=== PATIENT | female | born 1995 | race Caucasian/White ===

== ENCOUNTER 2018-10-29 21:22 | Emergency (ER) | payer MEDICARE, BC, OTHER ==
[2018-10-29 21:32] VITALS: BP 128/82; PULSE 99; RESP 20; TEMP 98.7
[2018-10-29] MEDS ORDERED: MAG HYDROX/AL HYDROX/SIMETH 30 ML, HYOSCYAMINE ELIXIR 10 ML, CIMETIDINE HCL 300 MG, LID... PO STA ×4 (22:28)
--- NOTE | 2018-10-29 22:32 | ED ---
Abdominal Pain HPI - General Chief Complaint: Abdominal Pain Stated Complaint: Abd pain Time Seen by Provider: 10/29/18 21:37 Source: patient Mode of arrival: ambulatory Limitations: no limitations - History of Present Illness Initial Comments: This patient is a 23-year-old woman who states that she has previously been told she has gastritis. She presents to be evaluated for epigastric discomfort that she is calling tightness. She states started to 3 hours ago after she had eaten some citrus-containing food. She states the discomfort is moderate intensity, constant, and she has not noted worsening or relieving factors. Patient states she also is having a little bit of nausea, but denies other symptoms. She declines antiemetic at my initial history and physical MD Complaint: abdominal pain Onset/Timin -: hour(s) Location: epigastric Radiation: none Severity: moderate Quality: other (Tightness) Consistency: constant Improves With: nothing Worsens With: nothing Associated Symptoms: nausea - Related Data Previous Rx's Medication Instructions Recorded Omeprazole 40 mg PO DAILY #14 capsule. 10/11/17 Famotidine [Pepcid] 20 mg PO BID #14 tablet 10/29/18 Allergies Allergy/AdvReac Type Severity Reaction Status Date / Time No Known Allergies Allergy Verified 10/29/18 21:32 Review of Systems ROS Statement: Those systems with pertinent positive or pertinent negative responses have been documented in the HPI. ROS Other: All systems not noted in ROS Statement are negative. Constitutional: Denies: fever, chills Respiratory: Denies: cough, dyspnea Cardiovascular: Denies: chest pain, palpitations, edema, syncope Gastrointestinal: Reports: abdominal pain, nausea. Denies: vomiting, diarrhea, constipation, melena, hematochezia Genitourinary: Denies: dysuria, hematuria Musculoskeletal: Denies: back pain Skin: Denies: rash Neurological: Denies: headache, weakness, numbness Past Medical History Past Medical History: Asthma Additional Past Medical History / Comment(s): Cognitive impairment since . Psoriasis. History of Any Multi-Drug Resistant Organisms: None Reported Past Surgical History: Adenoidectomy Additional Past Surgical History / Comment(s): oral surgery Past Anesthesia/Blood Transfusion Reactions: No Reported Reaction Past Psychological History: Anxiety Smoking Status: Never smoker Past Alcohol Use History: None Reported Past Drug Use History: None Reported - Past Family History Mother Family Medical History: Diabetes Mellitus General Exam Limitations: no limitations General appearance: alert, in no apparent distress Head exam: Present: atraumatic, normocephalic Eye exam: Present: normal appearance. Absent: scleral icterus, conjunctival injection ENT exam: Present: normal oropharynx Respiratory exam: Present: normal lung sounds bilaterally. Absent: respiratory distress, wheezes, rales, rhonchi, stridor Cardiovascular Exam: Present: regular rate, normal rhythm, normal heart sounds. Absent: systolic murmur, diastolic murmur, rubs, gallop GI/Abdominal exam: Present: soft, tenderness (Epigastric tenderness, mild without rebound or guarding.), normal bowel sounds. Absent: distended, guarding , rebound, rigid, mass, pulsatile mass, hernia Extremities exam: Present: normal inspection, normal capillary refill. Absent: pedal edema, calf tenderness Back exam: Present: normal inspection. Absent: CVA tenderness (R), CVA tenderness (L) Skin exam: Present: warm, dry, intact, normal color. Absent: rash Course Vital Signs 10/29/18 21:29 Temperature 98.7 F Pulse Rate 99 Respiratory 20 Rate Blood Pressure 128/82 O2 Sat by Pulse 98 Oximetry Medical Decision Making - Medical Decision Making On reevaluation, the patient states that the GI cocktail has improved her symptoms. Further history reveals that the patient has had ultrasound of the abdomen and they told her that her gallbladder looked okay. As she is feeling better and has had previous ultrasound, will give the patient further course of H2 raul and also discussed appropriate follow-up and further care as well as return parameters. Again there is no abdominal tenderness. - Lab Data Result diagrams: 10/29/18 22:50 10/29/18 22:50 Lab Results 10/29/18 10/29/18 10/29/18 Range/Units 22:50 22:50 22:50 WBC 11.4 H (3.8-10.6) k/uL RBC 5.23 (3.80-5.40) m/uL Hgb 14.5 (11.4-16.0) gm/dL Hct 44.1 (34.0-46.0) % MCV 84.3 (80.0-100.0) fL MCH 27.6 (25.0-35.0) pg MCHC 32.8 (31.0-37.0) g/dL RDW 12.9 (11.5-15.5) % Plt Count 416 (150-450) k/uL Neutrophils % 70 % Lymphocytes % 22 % Monocytes % 5 % Eosinophils % 1 % Basophils % 0 % Neutrophils # 8.0 H (1.3-7.7) k/uL Lymphocytes # 2.5 (1.0-4.8) k/uL Monocytes # 0.5 (0-1.0) k/uL Eosinophils # 0.1 (0-0.7) k/uL Basophils # 0.1 (0-0.2) k/uL Sodium 140 (137-145) mmol/L Potassium 3.6 (3.5-5.1) mmol/L Chloride 103 (98-107) mmol/L Carbon Dioxide 27 (22-30) mmol/L Anion Gap 10 mmol/L BUN 17 (7-17) mg/dL Creatinine 0.74 (0.52-1.04) mg/dL Est GFR (CKD-EPI)AfAm >90 (>60 ml/min/1.73 sqM) Est GFR (CKD-EPI)NonAf >90 (>60 ml/min/1.73 sqM) Glucose 100 H (74-99) mg/dL Calcium 11.4 H (8.4-10.2) mg/dL Total Bilirubin 0.3 (0.2-1.3) mg/dL AST 18 (14-36) U/L ALT 23 (9-52) U/L Alkaline Phosphatase 76 (38-126) U/L Total Protein 7.8 (6.3-8.2) g/dL Albumin 4.8 (3.5-5.0) g/dL Amylase 65 (30-110) U/L Lipase 142 (23-300) U/L Urine Color Light Yellow Urine Appearance Clear (Clear) Urine pH 6.0 (5.0-8.0) Ur Specific [place] 1.014 (1.001-1.035) Urine Protein Negative (Negative) Urine Glucose (UA) Negative (Negative) Urine Ketones Negative (Negative) Urine Blood Small H (Negative) Urine Nitrite Negative (Negative) Urine Bilirubin Negative (Negative) Urine Urobilinogen <2.0 (<2.0) mg/dL Ur Leukocyte Esterase Small H (Negative) Urine RBC <1 (0-5) /hpf Urine WBC 6 H (0-5) /hpf Ur Squamous Epith Cells 5 H (0-4) /hpf Urine Mucus Rare H (None) /hpf - EKG Data -: EKG Interpreted by Me EKG shows normal: sinus rhythm, axis (Normal), intervals (Normal), QRS complexes (Normal), ST-T waves (Normal) Rate: normal (With sinus arrhythmia, rate 88 bpm) Interpretation: normal EKG Disposition Clinical Impression: Abdominal pain Disposition: HOME SELF-CARE Condition: Good Instructions: Abdominal Pain (ED) Prescriptions: Famotidine [Pepcid] 20 mg PO BID #14 tablet Is patient prescribed a controlled substance at d/c from ED?: No Referrals: Ysabel Muñiz MD [Primary Care Provider] - 1-2 days
[2018-10-29 23:02] LABS: Basophils # (A) 0.1 k/uL (0-0.2); Basophils % (A) 0 %; Eosinophils # (A) 0.1 k/uL (0-0.7); Eosinophils % (A) 1 %; HCT 44.1 % (34.0-46.0); HGB 14.5 gm/dL (11.4-16.0); Lymphocytes # (A) 2.5 k/uL (1.0-4.8); Lymphocytes % (A) 22 %; MCH 27.6 pg (25.0-35.0); MCHC 32.8 g/dL (31.0-37.0); MCV 84.3 fL (80.0-100.0); Mean Platelet Volume 5.9; Monocytes # (A) 0.5 k/uL (0-1.0); Monocytes % (A) 5 %; Neutrophils % (A) 70 %; Platelet Count 416 k/uL (150-450); RBC 5.23 m/uL (3.80-5.40); RDW 12.9 % (11.5-15.5); WBC 11.4 k/uL (3.8-10.6)
[2018-10-29 23:03] LABS: Appearance,Urine Clear (Clear); Bilirubin,Urine Negative (Negative); Blood,Urine Small (Negative); Color,Urine Light Yellow; Glucose,Urine (UA) Negative (Negative); Ketones,Urine Negative (Negative); Leukocyte Esterase,Urine Small (Negative); Mucus,Urine Rare /hpf; Nitrite,Urine Negative (Negative); Protein,Urine Negative (Negative); RBC,Urine <1 /hpf (0-5); Specific Gravity,Urine 1.014 (1.001-1.035); Squamous Epithelial Cell,Urine 5 /hpf (0-4); Urobilinogen,Urine <2.0 mg/dL (<2.0); WBC,Urine 6 /hpf (0-5)
[2018-10-29 23:11] LABS: ALT 23 U/L (9-52); AST 18 U/L (14-36); Albumin 4.8 g/dL (3.5-5.0); Alkaline Phosphatase 76 U/L (38-126); Amylase 65 U/L (30-110); Anion Gap 10 mmol/L; Blood Urea Nitrogen 17 mg/dL (7-17); Calcium 11.4 mg/dL (8.4-10.2); Carbon Dioxide 27 mmol/L (22-30); Chloride 103 mmol/L (98-107); Glucose 100 mg/dL (74-99); Lipase 142 U/L (23-300); Potassium 3.6 mmol/L (3.5-5.1); Sodium 140 mmol/L (137-145); Total Bilirubin 0.3 mg/dL (0.2-1.3); Total Protein 7.8 g/dL (6.3-8.2)
== END 2018-10-29 23:55 | disposition home or self-care (01) ==
LOC: EC 21:22
DX: R10.9 Unspecified abdominal pain (principal); R11.0 Nausea
CPT/HCPCS: 36415; 80053; 81001; 82150; 83690; 85025; 93005; 99284

== ENCOUNTER 2019-10-22 20:42 | Emergency (ER) | payer MEDICARE, BC, OTHER ==
[2019-10-22] MEDS ORDERED: SODIUM CHLORIDE 0.9% 500 ML 500 ML IV STA (21:07)
[2019-10-22] MEDS ORDERED: PANTOPRAZOLE 40 MG/10 ML VIAL IVP STA (21:07)
[2019-10-22] MEDS ORDERED: MAG HYDROX/AL HYDROX/SIMETH 30 ML, HYOSCYAMINE ELIXIR 10 ML, LIDOCAINE VISCOUS 2% 10 ML PO STA ×3 (21:08)
--- NOTE | 2019-10-22 21:23 | ED ---
General Adult HPI - General Chief complaint: Abdominal Pain Stated complaint: Abd pain Time Seen by Provider: 10/22/19 20:59 Source: patient, RN notes reviewed, old records reviewed Mode of arrival: ambulatory Limitations: no limitations - History of Present Illness Initial comments: 24-year-old female patient past history except for asthma, mild cognitive impairment presents to ED for chief complaint of epigastric abdominal pain. Patient reports that for the last 2 days her epigastric region has been causing her pain. Describes as a burning and a dull pain. Reports nausea without emesis. States that she cannot be due to IUD. Denies any other complaints at this time. Systemic: Pt denies fatigue, fever/chills, rash. Pt denies weakness, night sweats, weight loss. Neuro: Pt denies headache, visual disturbances, syncope or pre-syncope. HEENT: Pt denies ocular discharge or irritation, otalgia, rhinorrhea, pharyngitis or notable lymphadenopathy. Cardiopulmonary: Pt denies chest pain, SOB, heart palpitations, dyspnea on exertion. : Pt denies dysuria, burning w/ urination, frequency/urgency. Denies new onset urinary or bowel incontinence. MSK: Pt denies myalgia, loss of strength or function in extremities. Neuro: Pt denies new onset weakness, paresthesias. - Related Data Previous Rx's Medication Instructions Recorded Omeprazole 40 mg PO DAILY #14 capsule. 10/11/17 Famotidine [Pepcid] 20 mg PO BID #14 tablet 10/29/18 Pantoprazole Sodium [Protonix] 20 mg PO Q24HR 7 Days #7 tablet. 10/22/19 Allergies Allergy/AdvReac Type Severity Reaction Status Date / Time No Known Allergies Allergy Verified 10/22/19 20:57 Review of Systems ROS Statement: Those systems with pertinent positive or pertinent negative responses have been documented in the HPI. ROS Other: All systems not noted in ROS Statement are negative. Past Medical History Past Medical History: Asthma Additional Past Medical History / Comment(s): Cognitive impairment since . Psoriasis. History of Any Multi-Drug Resistant Organisms: None Reported Past Surgical History: Adenoidectomy Additional Past Surgical History / Comment(s): oral surgery Past Anesthesia/Blood Transfusion Reactions: No Reported Reaction Past Psychological History: Anxiety Smoking Status: Never smoker Past Alcohol Use History: None Reported Past Drug Use History: None Reported - Past Family History Mother Family Medical History: Diabetes Mellitus General Exam - General Exam Comments Initial Comments: Constitutional: NAD, AOX3, Pt has pleasant affect. HEENT: NC/AT, trachea midline, neck supple, no lymphadenopathy. Posterior pharynx non erythematous, without exudates. External ears appear normal, without discharge. Mucous membranes moist. Eyes PERRLA, EOM intact. There is no scleral icterus. No pallor noted. Cardiopulmonary: RRR, no murmurs, rubs or gallops, no JVD noted. Lungs CTAB in anterior and posterior aquino. No peripheral edema. Abdominal exam: Abdomen soft and non-distended. Abdomen mildly tender to palpation in epigastric region. abdominal exam displayed significant improvement in tenderness. no other areas tender to palpation.Bowel sounds active in LLQ. No hepatosplenomegaly. No ecchymosis Neuro: CN II-XII grossly intact. No nuchal rigidity. No raccon eyes, no sawant sign, no hemotympanum. No cervical spinal tenderness. MSK: No posterior calf tenderness bilaterally, homans sign negative bilaterally. Posterior tibialis and radial pulse +2 bilaterally. Sensation intact in upper and lower extremities. Full active ROM in upper and lower extremities, 5/5 stregnth. Limitations: no limitations Course Vital Signs 10/22/19 10/22/19 20:54 21:42 Temperature 98.3 F Pulse Rate 88 82 Respiratory 18 17 Rate Blood Pressure 109/74 131/79 O2 Sat by Pulse 99 96 Oximetry Medical Decision Making - Medical Decision Making 24-year-old female patient past history except for asthma, mild cognitive impairment presents to ED for chief complaint of epigastric abdominal pain. Patient reports that for the last 2 days her epigastric region has been causing her pain. Describes as a burning and a dull pain. Reports nausea without emesis. States that she cannot be due to IUD. Denies any other complaints at this time. Patient will signs stable, afebrile. His exam displayed moderate amount of epigastric tenderness. Patient laboratory in vestigations revealed mild dehydration, slightly elevated BUN and creatinine. Patient was most 1.5 L bolus. Otherwise not impressive. Patient feeling much improved with GI cocktail, Protonix. Patient experiencing a gastritis-like syndrome. Will be discharged with Protonix will follow up with primary care provider tomorrow. We'll have kidney function test rechecked tomorrow. Return to ER physician worsens. Case discussed with Dr. Spence. - Lab Data Result diagrams: 10/22/19 21:21 10/22/19 21:21 Lab Results 10/22/19 10/22/19 10/22/19 Range/Units 21:20 21:20 21:21 WBC 9.6 (3.8-10.6) k/uL RBC 4.82 (3.80-5.40) m/uL Hgb 13.8 (11.4-16.0) gm/dL Hct 40.8 (34.0-46.0) % MCV 84.6 (80.0-100.0) fL MCH 28.6 (25.0-35.0) pg MCHC 33.8 (31.0-37.0) g/dL RDW 12.3 (11.5-15.5) % Plt Count 338 (150-450) k/uL Neutrophils % 62 % Lymphocytes % 29 % Monocytes % 6 % Eosinophils % 2 % Basophils % 0 % Neutrophils # 5.9 (1.3-7.7) k/uL Lymphocytes # 2.8 (1.0-4.8) k/uL Monocytes # 0.6 (0-1.0) k/uL Eosinophils # 0.1 (0-0.7) k/uL Basophils # 0.0 (0-0.2) k/uL Sodium (137-145) mmol/L Potassium (3.5-5.1) mmol/L Chloride (98-107) mmol/L Carbon Dioxide (22-30) mmol/L Anion Gap mmol/L BUN (7-17) mg/dL Creatinine (0.52-1.04) mg/dL Est GFR (CKD-EPI)AfAm (>60 ml/min/1.73 sqM) Est GFR (CKD-EPI)NonAf (>60 ml/min/1.73 sqM) Glucose (74-99) mg/dL Plasma Lactic Acid Alexandre (0.7-2.0) mmol/L Calcium (8.4-10.2) mg/dL Total Bilirubin (0.2-1.3) mg/dL AST (14-36) U/L ALT (4-34) U/L Alkaline Phosphatase (38-126) U/L Total Protein (6.3-8.2) g/dL Albumin (3.5-5.0) g/dL Lipase (23-300) U/L Urine Color Yellow Urine Appearance Clear (Clear) Urine pH 6.0 (5.0-8.0) Ur Specific [place] 1.022 (1.001-1.035) Urine Protein Negative (Negative) Urine Glucose (UA) Negative (Negative) Urine Ketones Negative (Negative) Urine Blood Negative (Negative) Urine Nitrite Negative (Negative) Urine Bilirubin Negative (Negative) Urine Urobilinogen <2.0 (<2.0) mg/dL Ur Leukocyte Esterase Small H (Negative) Urine RBC 1 (0-5) /hpf Urine WBC 3 (0-5) /hpf Ur Squamous Epith Cells 2 (0-4) /hpf Urine Mucus Rare H (None) /hpf Urine HCG, Qual Not Detected (Not Detectd) 10/22/19 10/22/19 Range/Units 21:21 21:21 WBC (3.8-10.6) k/uL RBC (3.80-5.40) m/uL Hgb (11.4-16.0) gm/dL Hct (34.0-46.0) % MCV (80.0-100.0) fL MCH (25.0-35.0) pg MCHC (31.0-37.0) g/dL RDW (11.5-15.5) % Plt Count (150-450) k/uL Neutrophils % % Lymphocytes % % Monocytes % % Eosinophils % % Basophils % % Neutrophils # (1.3-7.7) k/uL Lymphocytes # (1.0-4.8) k/uL Monocytes # (0-1.0) k/uL Eosinophils # (0-0.7) k/uL Basophils # (0-0.2) k/uL Sodium 138 (137-145) mmol/L Potassium 4.3 (3.5-5.1) mmol/L Chloride 105 (98-107) mmol/L Carbon Dioxide 25 (22-30) mmol/L Anion Gap 8 mmol/L BUN 19 H (7-17) mg/dL Creatinine 1.16 H (0.52-1.04) mg/dL Est GFR (CKD-EPI)AfAm 76 (>60 ml/min/1.73 sqM) Est GFR (CKD-EPI)NonAf 66 (>60 ml/min/1.73 sqM) Glucose 87 (74-99) mg/dL Plasma Lactic Acid Alexandre 0.7 (0.7-2.0) mmol/L Calcium 9.2 (8.4-10.2) mg/dL Total Bilirubin 0.5 (0.2-1.3) mg/dL AST 18 (14-36) U/L ALT 13 (4-34) U/L Alkaline Phosphatase 60 (38-126) U/L Total Protein 7.5 (6.3-8.2) g/dL Albumin 4.5 (3.5-5.0) g/dL Lipase 214 (23-300) U/L Urine Color Urine Appearance (Clear) Urine pH (5.0-8.0) Ur Specific [place] (1.001-1.035) Urine Protein (Negative) Urine Glucose (UA) (Negative) Urine Ketones (Negative) Urine Blood (Negative) Urine Nitrite (Negative) Urine Bilirubin (Negative) Urine Urobilinogen (<2.0) mg/dL Ur Leukocyte Esterase (Negative) Urine RBC (0-5) /hpf Urine WBC (0-5) /hpf Ur Squamous Epith Cells (0-4) /hpf Urine Mucus (None) /hpf Urine HCG, Qual (Not Detectd) Disposition Clinical Impression: Abdominal pain, Gastritis Disposition: HOME SELF-CARE Condition: Stable Instructions (If sedation given, give patient instructions): Abdominal Pain (ED), Gastritis (ED) Additional Instructions: take medications directed. Follow-up with primary care provider tomorrow. have kidney function tests rechecked. Return to ER if condition worsens in any way. Prescriptions: Pantoprazole Sodium [Protonix] 20 mg PO Q24HR 7 Days #7 tablet.dr Is patient prescribed a controlled substance at d/c from ED?: No Referrals: Ysabel Muñiz MD [Primary Care Provider] - 1-2 days
[2019-10-22 21:37] LABS: Basophils % (A) 0 %; Eosinophils # (A) 0.1 k/uL (0-0.7); Eosinophils % (A) 2 %; HCT 40.8 % (34.0-46.0); HGB 13.8 gm/dL (11.4-16.0); Lymphocytes # (A) 2.8 k/uL (1.0-4.8); Lymphocytes % (A) 29 %; MCH 28.6 pg (25.0-35.0); MCHC 33.8 g/dL (31.0-37.0); MCV 84.6 fL (80.0-100.0); Mean Platelet Volume 6.5; Monocytes # (A) 0.6 k/uL (0-1.0); Monocytes % (A) 6 %; Neutrophils # (A) 5.9 k/uL (1.3-7.7); Neutrophils % (A) 62 %; Platelet Count 338 k/uL (150-450); RBC 4.82 m/uL (3.80-5.40); RDW 12.3 % (11.5-15.5); WBC 9.6 k/uL (3.8-10.6)
[2019-10-22 21:39] LABS: Appearance,Urine Clear (Clear); Bilirubin,Urine Negative (Negative); Blood,Urine Negative (Negative); Color,Urine Yellow; Glucose,Urine (UA) Negative (Negative); Ketones,Urine Negative (Negative); Leukocyte Esterase,Urine Small (Negative); Mucus,Urine Rare /hpf; Nitrite,Urine Negative (Negative); Protein,Urine Negative (Negative); RBC,Urine 1 /hpf (0-5); Specific Gravity,Urine 1.022 (1.001-1.035); Squamous Epithelial Cell,Urine 2 /hpf (0-4); Urobilinogen,Urine <2.0 mg/dL (<2.0); WBC,Urine 3 /hpf (0-5)
[2019-10-22 21:46] LABS: Albumin 4.5 g/dL (3.5-5.0); Calcium 9.2 mg/dL (8.4-10.2); Potassium 4.3 mmol/L (3.5-5.1); Total Bilirubin 0.5 mg/dL (0.2-1.3); Total Protein 7.5 g/dL (6.3-8.2)
[2019-10-22] MEDS ORDERED: SODIUM CHLORIDE 0.9% 1,000 ML IV STA (21:52)
[2019-10-22 22:37] VITALS: RESP 16; TEMP 98
[2019-10-22 23:31] VITALS: BP 129/95; PULSE 71
== END 2019-10-22 23:31 | disposition home or self-care (01) ==
LOC: EC 20:42
DX: K29.70 Gastritis, unspecified, without bleeding (principal); E86.0 Dehydration; R79.89 Other specified abnormal findings of blood chemistry; G31.84 Mild cognitive impairment of uncertain or unknown etiology; Z97.5 Presence of (intrauterine) contraceptive device
CPT/HCPCS: 36415; 80053; 83605; 83690; 85025; 81001; 81025; 99284; 96374; 96361 ×2; C9113

== ENCOUNTER 2021-05-07 21:48 | Emergency (ER) | payer BC, MEDICARE ==
[2021-05-07 22:20] VITALS: BP 139/80; PULSE 117; RESP 20; TEMP 98.1
[2021-05-07] MEDS ORDERED: diphenhydrAMINE 50 MG CAP PO STA (23:37)
--- NOTE | 2021-05-07 23:37 | ED ---
SOB HPI - General Chief Complaint: Shortness of Breath Stated Complaint: SOB,breathed in mildew Time Seen by Provider: 05/07/21 22:37 Source: patient Mode of arrival: ambulatory Limitations: no limitations - History of Present Illness Initial Comments: This patient is 26-year-old woman who presents with complaint that she was having some shortness of breath and felt some tightness in her throat after she had been cleaning and small some mildew. The patient was not sure if this was related to the mildew or to the exposure to cleaning, chemicals. The patient states that she has had improvement while waiting here. MD Complaint: shortness of breath Onset/Timin -: hour(s) Severity scale (1-10): 0 Consistency: now resolved Improves With: nothing Worsens With: other Associated Symptoms: denies other symptoms - Related Data Previous Rx's Medication Instructions Recorded Omeprazole 40 mg PO DAILY #14 capsule. 10/11/17 Famotidine [Pepcid] 20 mg PO BID #14 tablet 10/29/18 Pantoprazole Sodium [Protonix] 20 mg PO Q24HR 7 Days #7 tablet. 10/22/19 Albuterol Inhaler [Ventolin Hfa 2 puff INHALATION Q4HR PRN #1 05/07/21 Inhaler] inhaler Allergies Allergy/AdvReac Type Severity Reaction Status Date / Time No Known Allergies Allergy Verified 05/07/21 22:17 Review of Systems ROS Statement: Those systems with pertinent positive or pertinent negative responses have been documented in the HPI. ROS Other: All systems not noted in ROS Statement are negative. Constitutional: Denies: fever, chills Respiratory: Reports: dyspnea, wheezes. Denies: cough Cardiovascular: Denies: chest pain, palpitations, orthopnea, edema, syncope Gastrointestinal: Denies: abdominal pain, vomiting, diarrhea Genitourinary: Denies: dysuria, hematuria Musculoskeletal: Denies: back pain Skin: Denies: rash Neurological: Denies: headache, weakness Past Medical History Past Medical History: Asthma Additional Past Medical History / Comment(s): Cognitive impairment since . Psoriasis. History of Any Multi-Drug Resistant Organisms: None Reported Past Surgical History: Adenoidectomy Additional Past Surgical History / Comment(s): oral surgery Past Anesthesia/Blood Transfusion Reactions: No Reported Reaction Past Psychological History: Anxiety Smoking Status: Never smoker Past Alcohol Use History: None Reported Past Drug Use History: None Reported - Past Family History Mother Family Medical History: Diabetes Mellitus General Exam Limitations: no limitations General appearance: alert, in no apparent distress Head exam: Present: atraumatic, normocephalic Eye exam: Present: normal appearance. Absent: scleral icterus, conjunctival injection ENT exam: Present: normal oropharynx Neck exam: Present: normal inspection Respiratory exam: Absent: respiratory distress, wheezes, rales, rhonchi, stridor, accessory muscle use Cardiovascular Exam: Present: regular rate (Rate is 92 of my exam), normal rhythm, normal heart sounds. Absent: systolic murmur, diastolic murmur, rubs, gallop GI/Abdominal exam: Present: soft. Absent: distended, tenderness, guarding, rebound, rigid, mass Extremities exam: Present: normal inspection, normal capillary refill. Absent: pedal edema, calf tenderness Neurological exam: Present: alert Skin exam: Present: warm, dry, intact, normal color. Absent: rash Course Vital Signs 05/07/21 22:18 Temperature 98.1 F Pulse Rate 117 H Respiratory 20 Rate Blood Pressure 139/80 O2 Sat by Pulse 97 Oximetry Medical Decision Making - Medical Decision Making Discussed with patient that I suspect she had an episode of bronchospasm. There is currently no symptoms or any exam findings. Discussed further care and follow-up. Discussed return parameters. Disposition Clinical Impression: Bronchospasm, acute Disposition: HOME SELF-CARE Condition: Good Instructions (If sedation given, give patient instructions): Bronchospasm (ED) Prescriptions: Albuterol Inhaler [Ventolin Hfa Inhaler] 2 puff INHALATION Q4HR PRN #1 inhaler PRN Reason: Wheezing Is patient prescribed a controlled substance at d/c from ED?: No Referrals: None,Stated [Primary Care Provider] - 1-2 days
== END 2021-05-07 23:47 | disposition home or self-care (01) ==
LOC: EC 21:48
DX: J98.01 Acute bronchospasm (principal); F41.9 Anxiety disorder, unspecified; Z79.51 Long term (current) use of inhaled steroids
CPT/HCPCS: 99284

== ENCOUNTER 2021-09-18 21:40 | Emergency (ER) | payer MEDICARE, OTHER ==
--- NOTE | 2021-09-18 23:45 | ED ---
General Adult HPI - General Chief complaint: Upper Respiratory Infection Stated complaint: COVID + VERONICA Time Seen by Provider: 09/18/21 23:33 Source: patient, RN notes reviewed Mode of arrival: ambulatory Limitations: no limitations - History of Present Illness Initial comments: 26-year-old well-appearing female presents to the emergency room with complaints of 7 days of cough and congestion. She states that she has had worsening shortness of breath over the past couple of days. She did see her primary care doctor 2 days ago and he prescribed her azithromycin and a Medrol Dosepak. He told her that it was a common cold. Patient states that her son tested positive for Covid 2 days ago and she is concerned that she may have Covid. She has had a history of asthma. -: days(s) (7) Location: mouth (Wrote), neck Severity scale (1-10): 0 Consistency: intermittent Improves with: other (Sitting up) Worsens with: other (Laying flat) Associated Symptoms: confusion, cough Treatments Prior to Arrival: other (Medrol Dosepak, azithromycin.) - Related Data Previous Rx's Medication Instructions Recorded Omeprazole 40 mg PO DAILY #14 capsule. 10/11/17 Famotidine [Pepcid] 20 mg PO BID #14 tablet 10/29/18 Pantoprazole Sodium [Protonix] 20 mg PO Q24HR 7 Days #7 tablet. 10/22/19 Albuterol Inhaler [Ventolin Hfa 2 puff INHALATION Q4HR PRN #1 05/07/21 Inhaler] inhaler Albuterol Nebulized [Ventolin 2.5 mg INHALATION QID PRN #125 nebu 05/08/21 Nebulized] Albuterol Sulfate [Albuterol 2 puff INHALATION Q6H PRN #1 05/08/21 Sulfate Hfa] inhaler Allergies Allergy/AdvReac Type Severity Reaction Status Date / Time No Known Allergies Allergy Verified 09/18/21 22:59 Review of Systems ROS Statement: Those systems with pertinent positive or pertinent negative responses have been documented in the HPI. ROS Other: All systems not noted in ROS Statement are negative. Past Medical History Past Medical History: Asthma Additional Past Medical History / Comment(s): Cognitive impairment since . Psoriasis. History of Any Multi-Drug Resistant Organisms: None Reported Past Surgical History: Adenoidectomy Additional Past Surgical History / Comment(s): oral surgery Past Anesthesia/Blood Transfusion Reactions: No Reported Reaction Past Psychological History: Anxiety Smoking Status: Never smoker Past Alcohol Use History: None Reported Past Drug Use History: None Reported - Past Family History Mother Family Medical History: Diabetes Mellitus General Exam Limitations: no limitations General appearance: alert, in no apparent distress Head exam: Present: atraumatic, normocephalic, normal inspection Eye exam: Present: normal appearance, EOMI. Absent: scleral icterus, conjunctival injection, periorbital swelling ENT exam: Present: normal exam, normal oropharynx, mucous membranes moist Neck exam: Present: normal inspection. Absent: tenderness, meningismus, full ROM, lymphadenopathy, thyromegaly Respiratory exam: Present: normal lung sounds bilaterally. Absent: respiratory distress, wheezes, rales, rhonchi, stridor, chest wall tenderness, accessory muscle use Cardiovascular Exam: Present: tachycardia Back exam: Present: normal inspection. Absent: full ROM, tenderness, CVA tenderness (R), CVA tenderness (L), rash noted Neurological exam: Present: alert, oriented X3, normal gait Psychiatric exam: Present: normal affect, normal mood Skin exam: Present: warm, dry, intact, normal color. Absent: rash, cyanosis, diaphoretic Course Vital Signs 09/18/21 09/19/21 09/19/21 22:59 00:00 00:55 Temperature 98 F 98.7 F Pulse Rate 114 H 99 Respiratory 18 20 18 Rate Blood Pressure 136/81 130/84 O2 Sat by Pulse 96 95 Oximetry Medical Decision Making - Medical Decision Making Patient's Covid test is negative today. Patient was offered monoclonal antibodies and declined. She was given a fact sheet to review regarding monoclonal antibodies. I did direct her to return to the emergency room if symptoms worsen. She states she is going to continue taking her Medrol dose pack and antibiotics as previously prescribed. Lungs sounds are clear to auscultation. Her vital signs are stable. She will follow up with her primary care doctor. She states she will return to the emergency room with any new or worsening symptoms. Case was discussed with Dr. Guzman. - Lab Data Lab Results 09/18/21 Range/Units 23:03 Coronavirus (PCR) Not Detected (Not Detectd) Disposition Clinical Impression: Acute upper respiratory infection Disposition: HOME SELF-CARE Condition: Good Instructions (If sedation given, give patient instructions): Upper Respiratory Infection (ED) Additional Instructions: Continue taking the medication as prescribed by your primary care doctor. You can try Benadryl [id number] to help with nasal drainage. Follow up with your doctor next week. You can return to the emergency room for monoclonal antibodies. Return to emergency room with any new or worsening symptoms. Is patient prescribed a controlled substance at d/c from ED?: No Referrals: Syed Mg MD [Primary Care Provider] - 1-2 days Time of Disposition: 00:34
[2021-09-19 00:56] VITALS: BP 130/84; PULSE 99; RESP 18; TEMP 98.7
== END 2021-09-19 00:56 | disposition home or self-care (01) ==
LOC: EC 21:40
DX: J06.9 Acute upper respiratory infection, unspecified (principal); Z20.822 Contact with and (suspected) exposure to COVID-19; J45.909 Unspecified asthma, uncomplicated; Z79.51 Long term (current) use of inhaled steroids; Z79.899 Other long term (current) drug therapy
CPT/HCPCS: 87635; 99283

== ENCOUNTER → 2022-05-12 | Outpatient (CLI) | payer MEDICARE ==
--- NOTE | 2022-05-12 08:59 | US ---
EXAMINATION TYPE: US pelvic complete DATE OF EXAM: 05/12/2022 COMPARISON: US 01/2013 CLINICAL HISTORY: 27-year-old female Z97.5 INTRAUTERINE DEVICE N92.1 EXCESSIVE menstruation. SPOTTING WITH IUD TECHNIQUE: Transvaginal (TV). Transabdominal sonographic images of the pelvis were acquired. Date of LMP: 04/19/2022 EXAM MEASUREMENTS: Uterus: 9.2 x 3.3 x 4.4cm Endometrial Stripe: 0.5cm Right Ovary: 3.4 x 2.2 x 3.5cm Left Ovary: 3.3 x 2.4 x 2.3cm 1. Uterus: Anteverted. No abnormalities seen 2. Endometrium: wnl, IUD appears appropriately situated along the uterine cavity. 3. Right Ovary: wnl, follicles noted largest measuring 1.2 x 1.1 x 1.2cm 4. Left Ovary: Normal follicular change. 5. Bilateral Adnexa: wnl 6. Posterior cul-de-sac: wnl IMPRESSION: 1. IUD appropriately situated along the uterine cavity. 2. Normal follicular change in both ovaries
== END | disposition home or self-care (01) ==
LOC: RADUSWWP 07:47
PROVIDERS: ATTEND Obstetrics & Gynecology
DX: N92.1 Excessive and frequent menstruation with irregular cycle (principal); Z97.5 Presence of (intrauterine) contraceptive device
CPT/HCPCS: 76856

== ENCOUNTER → 2023-09-09 | Outpatient (CLI) | payer MEDICARE ==
--- NOTE | 2023-09-09 10:39 | US ---
EXAMINATION TYPE: US pelvic complete DATE OF EXAM: 09/09/2023 COMPARISON: US 2021 CLINICAL INDICATION: Female, 28 years old with history of N93.9 ABNORMAL UTERINE AND VAGINAL BLEEDING ,; Irregular heavy painful periods x 10+ years TECHNIQUE: . Transabdominal sonographic images of the pelvis were acquired. Date of LMP: 08/19/2023 EXAM MEASUREMENTS: Uterus: 9.2 x 3.3 x 4.0 cm Endometrial Stripe: 0.7 cm Right Ovary: 3.1 x 2.0 x 3.0 cm Left Ovary: 3.0 x 1.7 x 2.0 cm 1. Uterus: anteverted 2. Endometrium: IUD seen in place 3. Right Ovary: wnl 4. Left Ovary: wnl 5. Bilateral Adnexa: wnl 6. Posterior cul-de-sac: wnl Unremarkable anteverted uterus. Endometrium is within normal thickness. IUD is demonstrated within th e endometrium. Both ovaries appear unremarkable. No free fluid. IMPRESSION: 1. No acute pelvic process. 2. Endometrium is within normal thickness with IUD in place.
== END | disposition home or self-care (01) ==
LOC: RADUSWWP 09:10
PROVIDERS: ATTEND Family Medicine
DX: N93.9 Abnormal uterine and vaginal bleeding, unspecified (principal); N94.6 Dysmenorrhea, unspecified; Z97.5 Presence of (intrauterine) contraceptive device
CPT/HCPCS: 76856

== ENCOUNTER → 2024-03-06 | Outpatient (CLI) | payer MEDICARE, OTHER ==
--- NOTE | 2024-03-17 13:59 | HM ---
HOLTER MONITOR REPORT STUDY PERFORMED: A 24-hour monitor. FINDINGS: The patient was monitored for 24 hours. The baseline rhythm appeared to be sinus mechanism with a minimum heart rate of 62 beats per minute and average heart rate of 95 and maximum heart rate of 158 beats per minute. Ventricular and supraventricular ectopic events were rare. No evidence of sinus pause or sinus arrest. CONCLUSION: This is a 24-hour Holter monitor. The baseline rhythm appeared to be sinus mechanism. Rare PACs and PVCs. No evidence of sinus pause or sinus arrest noted. MMODL / IJN: [id number] /
== END | disposition home or self-care (01) ==
LOC: RADECHMAIN 07:55
PROVIDERS: ATTEND Family Medicine
DX: R00.2 Palpitations (principal)
CPT/HCPCS: 93225; 93226

== ENCOUNTER → 2024-09-25 | Outpatient (CLI) | payer MEDICARE, OTHER ==
--- NOTE | 2024-09-25 16:34 | US ---
EXAMINATION TYPE: US pelvic complete DATE OF EXAM: 09/25/2024 COMPARISON: Pelvic ultrasound 09/09/23, 05/12/2022 CLINICAL INDICATION: Female, 29 years old with history of N91.2 AMENORRHEA; irregular periods. . IUD since 2017 TECHNIQUE: Transabdominal (TA). FINDINGS: Date of LMP: unknown EXAM MEASUREMENTS: Uterus: 9.6 x 3.9 x 3.1 cm Endometrial Stripe: 0.42 cm Right Ovary: 3.6 x 2.4 x 1.8 cm Left Ovary: 3.0 x 2.4 x 1.6 cm 1. Uterus: Anteverted wnl 2. Endometrium: wnl 3. Right Ovary: wnl 4. Left Ovary: wnl 5. Bilateral Adnexa: wnl 6. Posterior cul-de-sac: wnl Unremarkable anteverted uterus with IUD in place. Endometrium is within normal limits. Both ovaries a ppear within normal limits. No free fluid. IMPRESSION: 1. No acute pelvic process. 2. Endometrium is within normal thickness with IUD in place. [facility], , 09/25/2024 4:32 PM
== END | disposition home or self-care (01) ==
LOC: RADUSWWP 15:34
PROVIDERS: ATTEND Family Medicine
DX: N91.2 Amenorrhea, unspecified (principal); N92.6 Irregular menstruation, unspecified; Z97.5 Presence of (intrauterine) contraceptive device
CPT/HCPCS: 76856

== ENCOUNTER → 2024-12-12 | Outpatient (CLI) | payer MEDICARE, OTHER ==
[2024-12-12 14:47] VITALS: BP 151/91; PULSE 81; RESP 18; TEMP 97.3
--- NOTE | 2024-12-12 16:10 | P.SLEEP ---
History of Present Illness H&P Date: 12/12/24 Is a 29-year-old female patient was referred to me for treatment of a obstructive sleep apnea that was diagnosed earlier. The patient had history of loud snoring, sleep fragmentation, and excessive hypersomnia and sleepiness. She also has dry mouth whenever she wakes up in the morning. She has grinding of the teeth. She feels exhausted and tired at all times. She has an irregular sleep schedule where the patient goes to bed at various times and she is unable to keep or maintain a regular schedule. On average, she is sleeping 6 hours on a 24-hour. And sometimes up to 7 hours. She is morbidly obese and she has gained weight significantly over the past 10 years and she probably has gained around 120 pounds. No excessive utilization of alcoholic beverages. No excessive utilization of caffeinated beverages. She sleeps on her side. She wakes up few times in the middle of the night and she is able to generate sleep without any major difficulties. Based on all this, a home sleep study was done on this patient and outpatient maintenance study was completed on 11/09/2025. Review of the home sleep study showed that the patient had severe obstructive sleep apnea. The patient was established to have an AHI of 36. The same time, the patient encountered severe nocturnal in the titration with a minimum pulse ox of 67%. Based on that, the patient was referred to me for further advice. Her other comorbid conditions include chronic bronchial asthma. No history of any motor vehicle accidents because of feeling drowsy or sleepy although the patient reports that she has fallen asleep behind the wheel for brief seconds. Her current [place] score is at 11. No sleep paralysis. No hallucinations. No cataplexy. Review of Systems Constitutional: Reports daytime sleepiness, Reports fatigue, Reports weight gain Eyes: denies as per HPI, denies blurred vision, denies bulging eye, denies decreased vision, denies diplopia, denies discharge, denies dry eye, denies irritation, denies itching, denies pain, denies photophobia, denies loss of peripheral vision, denies loss of vision, denies tunnel vision/blind spots Ears: deny: decreased hearing, ear discharge, earache, tinnitus Ears, nose, mouth and throat: Reports as per HPI Breasts: absent: as per HPI, change in shape, gynecomastia, masses, nipple discharge, pain, skin changes, swelling Cardiovascular: Reports as per HPI Respiratory: Reports sleep apnea, Reports snoring Gastrointestinal: Reports as per HPI Genitourinary: Reports as per HPI Menstruation: Reports as per HPI Musculoskeletal: Reports as per HPI Musculoskeletal: absent: ankle pain, ankle stiffness, ankle swelling, as per HPI, elbow pain, elbow stiffness, elbow swelling, foot pain, foot stiffness, foot swelling, hand pain, hand stiffness, hand swelling, hip pain, hip stiffness, hip swelling, knee pain, knee stiffness, knee swelling, shoulder pain, shoulder stiffness, shoulder swelling, wrist pain, wrist stiffness, wrist swelling Integumentary: Reports as per HPI Neurological: Reports as per HPI Psychiatric: Reports hypersomnia, Reports sleep disturbances Endocrine: Reports fatigue Hematologic/Lymphatic: Reports as per HPI Allergic/Immunologic: Reports as per HPI Past Medical History Past Medical History: Asthma, Sleep Apnea/CPAP/BIPAP Additional Past Medical History / Comment(s): Cognitive impairment since . Psoriasis. History of Any Multi-Drug Resistant Organisms: None Reported Past Surgical History: Adenoidectomy Additional Past Surgical History / Comment(s): oral surgery Past Anesthesia/Blood Transfusion Reactions: No Reported Reaction Past Psychological History: Anxiety, Panic Disorder, PTSD Additional Psychological History / Comment(s): pt states hx of anxiety at 11 yrs old. on meds at that time. pt is cognitively slow. slow to respond and is unsure of many questions asked during assessment. unsure of dates and procedures. Smoking Status: Never smoker Past Alcohol Use History: None Reported Past Drug Use History: None Reported - Past Family History Mother Family Medical History: Diabetes Mellitus Additional Family Medical History / Comment(s): (grandpa - heart problems, sleep apnea, snoring, cancer) (grandma = fibromyalgia, arthritis, cancer) Medications and Allergies Home Medications Medication Instructions Recorded Confirmed Type Omeprazole 40 mg PO DAILY #14 capsule. 10/11/17 Rx Famotidine [Pepcid] 20 mg PO BID #14 tablet 10/29/18 Rx Pantoprazole Sodium [Protonix] 20 mg PO Q24HR 7 Days #7 tablet. 10/22/19 Rx Albuterol Inhaler [Ventolin Hfa 2 puff INHALATION Q4HR PRN #1 05/07/21 Rx Inhaler] inhaler Albuterol Nebulized [Ventolin 2.5 mg INHALATION QID PRN #125 nebu 05/08/21 Rx Nebulized] Albuterol Sulfate [Albuterol 2 puff INHALATION Q6H PRN #1 05/08/21 Rx Sulfate Hfa] inhaler Allergies Allergy/AdvReac Type Severity Reaction Status Date / Time No Known Allergies Allergy Verified 09/18/21 22:59 Physical Exam Vitals: Vital Signs Temp Pulse Resp BP Pulse Ox 12/12/24 14:43 97.3 F L 81 18 151/91 98 Intake and Output 12/12/24 12/12/24 12/12/24 06:59 14:59 22:59 Other: Weight 135.284 kg The patient appeared well nourished and normally developed. Vital signs as documented. The patient is morbidly obese with a body mass index of 59.8 Head exam is unremarkable. No scleral icterus or corneal arcus noted. Neck is without jugular venous distension, thyromegaly, or carotid bruits. Carotid upstrokes are brisk bilaterally. Mallampati class IV with crowding the posterior pharynx Lungs are clear to auscultation and percussion. Cardiac exam reveals the PMI to be normally sized and situated. Rhythm is regular. First and second heart sounds normal. No murmurs, rubs or gallops. Abdominal exam reveals normal bowel sounds, no masses, no organomegaly and no aortic enlargement. Extremities are nonedematous and both femoral and pedal pulses are normal. Examination of the skin revealed no evidence of significant rashes, suspicious appearing nevi or other concerning lesions. Neurologically, the patient is awake and alert and the patient does not have any focal neurological deficit. Cranial nerves are essentially intact. Assessment and Plan Plan: Severe obstructive sleep apnea with an AHI of 36 based on a sleep study that was done on an outpatient basis/home sleep study dated 11/09/2025. Patient also encountered considerable nocturnal oxygen desaturation with a minimum pulse ox of 67%. Morbid obesity with a BMI 59.8 Chronic hypersomnia, [place] score of 11 Irregular sleep schedule and sleep fragmentation secondary to obstructive sleep apnea, severe Chronic bronchial asthma Polycystic ovary syndrome Plan Discussed the finding with the patient. I went over the results of the home sleep study which indicated severe obstructive sleep apnea The patient is quite symptomatic from her disease and the patient will benefit from treatment. Based on the severity of her obstructive sleep apnea, I recommend in-lab CPAP titration and subsequent CPAP therapy. Will make the appropriate adjustments of the CPAP machine and the mask interface to achieve good clinical response. Encourage weight loss Regular sleep schedule Asked the patient to go to bed and wake up at regular times preferably between 11 PM and 6 AM in the morning. Avoid take any naps during the day. Will continue to follow and make further recommendations. For now, the patient is going to be scheduled to undergo a CPAP titration at [facility]. Sleep Note - Sleep Data ESS Total: 11 - Sleep Note Sleep Note: Temperature: 97.3 F Pulse Rate: 81 Respiratory Rate: 18 Blood Pressure: 151/91 SpO2: 98 Height: 4 ft 11.2 in Weight: 135.284 kg BMI: Neck Circumference: 17
== END ==
LOC: 3 N SLEEP 13:46
PROVIDERS: ATTEND Internal Medicine Critical Care Medicine
DX: G47.33 Obstructive sleep apnea (adult) (pediatric) (principal); E66.9 Obesity, unspecified; G47.10 Hypersomnia, unspecified; G47.8 Other sleep disorders; J45.909 Unspecified asthma, uncomplicated; E28.2 Polycystic ovarian syndrome; Z68.43 Body mass index [BMI] 50.0-59.9, adult
CPT/HCPCS: 99211

== ENCOUNTER 2025-01-09 19:14 | Outpatient (CLI) | payer MEDICARE, OTHER ==
--- NOTE | 2025-01-10 16:09 | P.PCN ---
Date of Procedure: 01/09/25 Operative Findings: CPAP titration report Date of service is 01/09/2025 History 29-year-old female patient was referred to me for treatment of a obstructive sleep apnea that was diagnosed earlier. The patient had history of loud snoring, sleep fragmentation, and excessive hypersomnia and sleepiness. She also has dry mouth whenever she wakes up in the morning. She has grinding of the teeth. She feels exhausted and tired at all times. She has an irregular sleep schedule where the patient goes to bed at various times and she is unable to keep or maintain a regular schedule. On average, she is sleeping 6 hours on a 24-hour. And sometimes up to 7 hours. She is morbidly obese and she has gained weight significantly over the past 10 years and she probably has gained around 120 pounds. No excessive utilization of alcoholic beverages. No excessive utilization of caffeinated beverages. She sleeps on her side. She wakes up few times in the middle of the night and she is able to generate sleep without any major difficulties. Based on all this, a home sleep study was done on this patient and outpatient maintenance study was completed on 11/09/2024. Review of the home sleep study showed that the patient had severe obstructive sleep apnea. The patient was established to have an AHI of 36. The same time, the patient encountered severe nocturnal in the titration with a minimum pulse ox of 67%. Based on that, the patient was referred to me for further advice. Her other comorbid conditions include chronic bronchial asthma. No history of any motor vehicle accidents because of feeling drowsy or sleepy although the patient reports that she has fallen asleep behind the wheel for brief seconds. Her current [place] score is at 11. No sleep paralysis. No hallucinations. No cataplexy. Pertinent physical findings The patient's weight is 298 pounds with a body mass index of 62.3 Technical description The patient was studied using a standard complex polysomnography protocol that included recording of the Lead II EKG, Central, occipital and frontal EEG, right and left outer canthus EOG, submental EMG, right and left anterior tibialis EMG, respiratory airflow by thermocouple and or pressure/flow transducer, respiratory efforts by abdominal and thoracic PVDF belts, oxygen saturation by cable oximetry. Position by observation synchronized the PSG. Equipment used: [employer]. Stepwise CPAP titration was done to eliminate all obstructive respiratory events Sleep architecture The total recording duration was 417.0 minutes. The total sleep time was 171.5 minutes. The latency to sleep onset was 62 minutes and latency to REM sleep was 235.5 minutes. The wake after sleep onset time was 182 minutes. The sleep architecture was characterized by 11.1% stage I, 90.1% stage II, 0% stage III and a total of 0.6% REM sleep. The total arousal index was 15.4 Respiratory analysis CPAP titration was started initially at a pressure of 4 cm of water and the CPAP pressure was gradually increased by increments of 1 cm to reach a maximum CPAP pressure of 15 cm of water. Oxygen was also added at 2 L. Subsequently, the patient was switched to a BiPAP and a BiPAP titration was continued initially at a pressures of 14/10 and a maximum BiPAP pressure achieved was 18 over 14 cm of water. Noted, the overall sleep efficiency was poor. As such, this limited our ability to accurately identify the patient's treatment pressure. Based on my review, the patient did much better on BiPAP compared to CPAP. I am going to treat this patient with a VPAP auto and monitor his clinical response. As far as oxygenation, the patient was having significant oxygen desaturations and oxygen at 2 L/min was added to maintain saturation above 90% Sleep continuity summary The patient had a total of 44 arousals with an index of 15.4. Respiratory arousal index was 2.8 Periodic limb movement activity None Cardiac summary Average heart rate was 84 minimum heart rate of 79 and a maximum heart rate of 90 Assessment Severe obstructive sleep apnea with an AHI of 36 based on a sleep study that was done on an outpatient basis/home sleep study dated 11/09/2024. Patient also encountered considerable nocturnal oxygen desaturation with a minimum pulse ox of 67%. Based on that, the patient was brought to the sleep center to undergo a CPAP/BiPAP titration. Morbid obesity with a BMI 59.8 Chronic hypersomnia, [place] score of 11 Irregular sleep schedule and sleep fragmentation secondary to obstructive sleep apnea, severe Chronic bronchial asthma Polycystic ovary syndrome Plan The CPAP/BiPAP titration was limited by the diminished number of hours of sleep and the patient's diminished sleep efficiency. Nevertheless, the patient did much better on BiPAP compared to CPAP. Obstructive respiratory events were essentially terminated while the patient was on BiPAP. Oxygen was also added at 2 L to maintain saturation above 90%. My plan is to start the patient on a VPAP auto. I am going to put this patient on a EPAP minimum of 8 and a maximum pressure of 18 and a pressure support of 4. The patient is going to be provided an AirFit P10 small size nasal pillows. Will hold off on oxygen therapy for now and an oxygen saturation evaluation will be done at a later stage as the patient is able to tolerate BiPAP therapy. The patient will be started on BiPAP therapy and the patient was seen back in the office in 30 to 90 days to assess clinical response and compliancy. Encourage weight loss Asked the patient to go to bed and wake up at regular times preferably between 11 PM and 6 AM in the morning. Avoid take any naps during the day. Will continue to follow
== END 2025-01-10 07:00 | disposition home or self-care (01) ==
LOC: 3 N SLEEP 19:14
PROVIDERS: ATTEND Internal Medicine Critical Care Medicine
DX: G47.33 Obstructive sleep apnea (adult) (pediatric) (principal); E28.2 Polycystic ovarian syndrome; E66.01 Morbid (severe) obesity due to excess calories; J45.998 Other asthma; Z68.43 Body mass index [BMI] 50.0-59.9, adult
CPT/HCPCS: 95811